=== PATIENT | male | born 1930 | race Caucasian/White ===

== ENCOUNTER 2017-08-19 18:46 | Observation (INO) | payer MEDICARE, BC ==
--- NOTE | 2017-08-19 19:04 | EDM.PDOC ---
ED HPI GENERAL MEDICAL PROBLEM - General Chief Complaint: General Stated Complaint: ILLNESS Time Seen by Provider: 08/19/17 19:04 Source of Information: Reports: Patient History Limitations: Reports: No Limitations - History of Present Illness INITIAL COMMENTS - FREE TEXT/NARRATIVE: pt arrived with a history of marked weakness. He started with a cough on wednesday and today he can not get out of bed. Onset: Other ( started wednesday. ) Duration: Day(s):, Getting Worse, Other (Pt is getting much weaker. ) Location: Reports: Chest, Generalized Associated Symptoms: Reports: Cough, Loss of Appetite, Weakness low back Pain Score (Numeric/FACES): 6 - Related Data Allergies Allergy/AdvReac Type Severity Reaction Status Date / Time No Known Allergies Allergy Verified 05/22/16 15:08 Home Meds: Home Meds Triamcinolone Acetonide [Triamcinolone Acetonide 0.1% Crm] 1 applic TOP BEDTIME 08/19/17 [History] Past Medical History HEENT History: Reports: Cataract, Hard of Hearing Genitourinary History: Reports: Prostate Disorder Musculoskeletal History: Reports: Back Pain, Chronic - Infectious Disease History Infectious Disease History: Reports: Measles, Mumps - Past Surgical History HEENT Surgical History: Reports: Cataract Surgery GI Surgical History: Reports: Hernia, Inguinal Social & Family History - Tobacco Use Smoking Status *Q: Never Smoker Second Hand Smoke Exposure: No - Caffeine Use Caffeine Use: Reports: Coffee - Alcohol Use Days Per Week of Alcohol Use: 7 Number of Drinks Per Day: 1 Total Drinks Per Week: 7 - Recreational Drug Use Recreational Drug Use: No ED ROS GENERAL - Review of Systems Review Of Systems: See Below Constitutional: Reports: Weakness, Fatigue HEENT: Reports: No Symptoms Respiratory: Reports: Shortness of Breath, Cough Cardiovascular: Reports: No Symptoms Endocrine: Reports: No Symptoms GI/Abdominal: Reports: No Symptoms : Reports: No Symptoms Musculoskeletal: Reports: Muscle Pain, Muscle Stiffness Skin: Reports: No Symptoms ED EXAM, GENERAL - Physical Exam Exam: See Below Free Text/Narrative:: pt arrived with a history of marked weakness and a cough. He has been ill since wednesday. He has a very loose cough. He is so weak he is not able to get out of bed. he did not have a flu shot. Exam Limited By: Other (pt has a cough and is very weak.) General Appearance: Alert, Mild Distress Ears: Normal TMs Nose: Normal Inspection Throat/Mouth: Normal Inspection Head: Atraumatic Neck: Normal Inspection Respiratory/Chest: Decreased Breath Sounds, Rales, Other (Pt has rales at the lung bases. ) Cardiovascular: Regular Rate, Rhythm GI/Abdominal: Soft, Non-Tender (Male) Exam: Deferred Back Exam: Other ( History of compression fractures and he fell twice in the last 2 days. ) Extremities: Normal Inspection Neurological: Alert, Oriented, Normal Cognition Psychiatric: Depressed Mood Course - Vital Signs Last Recorded V/S: Last Vital Signs Temp 37.2 C 08/20/17 01:11 Pulse 61 08/20/17 06:00 Resp 14 08/20/17 06:00 BP 112/55 L 08/20/17 06:00 Pulse Ox 95 08/20/17 06:00 - Orders/Labs/Meds Orders: Active Orders 24 hr Category Date Time Status Chest 1V Frontal [CR] Stat Exams 08/19/17 18:51 Taken Lumbar Spine Min 4V [CR] Stat Exams 08/19/17 19:42 Taken CULTURE URINE [RM] Stat Lab 08/19/17 20:20 Received Medication Orders Acetaminophen (Tylenol) 650 mg PO Q4H PRN PRN Reason: Pain (Mild 1-3)/fever Enoxaparin Sodium (Lovenox) 40 mg SUBCUT DAILY [facility] Sodium Chloride (Normal Saline) 1,000 mls @ 125 mls/hr IV ASDIRECTED [facility] Last Admin: 08/20/17 06:26 Dose: 125 mls/hr Infusion: 08/20/17 06:26 Dose: 125 mls/hr Admin: 08/19/17 22:32 Dose: 125 mls/hr Levofloxacin/Dextrose 500 mg/ (Premix) 100 mls @ 100 mls/hr IV Q24H [facility] Last Admin: 08/19/17 22:33 Dose: 100 mls/hr Ondansetron HCl (Zofran Odt) 4 mg PO Q6H PRN PRN Reason: Nausea able to take PO Oseltamivir Phosphate (Tamiflu) 30 mg PO BID [facility] Last Admin: 08/19/17 23:19 Dose: 30 mg Senna/Docusate Sodium (Senna Plus) 1 tab PO BID PRN PRN Reason: Constipation Labs: Laboratory Tests 08/19/17 08/19/17 08/19/17 Range/Units 18:51 18:51 19:06 WBC 6.4 (4.5-11.0) K/uL RBC 4.17 L (4.30-5.90) M/uL Hgb 13.7 (12.0-15.0) g/dL Hct 39.3 L (40.0-54.0) % MCV 94 (80-98) fL MCH 33 H (27-31) pg MCHC 35 (32-36) % Plt Count 150 (150-400) K/uL Neut % (Auto) 82 H (36-66) % Lymph % (Auto) 6 L (24-44) % [place] % (Auto) 12 H (2-6) % Eos % (Auto) 0 L (2-4) % Baso % (Auto) 0 (0-1) % Sodium 134 L (140-148) mmol/L Potassium 3.8 (3.6-5.2) mmol/L Chloride 100 (100-108) mmol/L Carbon Dioxide 22 (21-32) mmol/L Anion Gap 15.8 H (5.0-14.0) mmol/L BUN 22 H (7-18) mg/dL Creatinine 1.2 (0.8-1.3) mg/dL Est Cr Clr Drug Dosing 44.19 mL/min Estimated GFR (MDRD) 57 L (>60) Glucose 105 (74-106) mg/dL Calcium 7.9 L (8.5-10.1) mg/dL Total Bilirubin 0.7 (0.2-1.0) mg/dL AST 41 H (15-37) U/L ALT 26 (12-78) U/L Alkaline Phosphatase 65 (46-116) U/L C-Reactive Protein 3.05 H (0.0-0.3) mg/dL NT-Pro-B Natriuret Pep (5-450) pg/mL Total Protein 6.3 L (6.4-8.2) g/dL Albumin 3.1 L (3.4-5.0) g/dL Globulin 3.2 (2.3-3.5) g/dL Albumin/Globulin Ratio 1.0 L (1.2-2.2) Urine Color Yellow Urine Appearance Clear Urine pH 5.0 (4.5-8.0) Ur Specific [place] 1.020 (1.008-1.030) Urine Protein Trace (NEGATIVE) mg/dL Urine Glucose (UA) Normal (NEGATIVE) mg/dL Urine Ketones 15 H (NEGATIVE) mg/dL Urine Occult Blood Large (NEGATIVE) Urine Nitrite Negative (NEGAITVE) Urine Bilirubin Negative (NEGATIVE) Urine Urobilinogen Normal (NORMAL) mg/dL Ur Leukocyte Esterase Negative (NEGATIVE) Urine RBC 5-10 H (0-5) Urine WBC 0-5 (0-5) Ur Epithelial Cells Rare Amorphous Sediment Few Urine Bacteria Rare Urine Mucus Few 08/19/17 Range/Units 19:59 WBC (4.5-11.0) K/uL RBC (4.30-5.90) M/uL Hgb (12.0-15.0) g/dL Hct (40.0-54.0) % MCV (80-98) fL MCH (27-31) pg MCHC (32-36) % Plt Count (150-400) K/uL Neut % (Auto) (36-66) % Lymph % (Auto) (24-44) % [place] % (Auto) (2-6) % Eos % (Auto) (2-4) % Baso % (Auto) (0-1) % Sodium (140-148) mmol/L Potassium (3.6-5.2) mmol/L Chloride (100-108) mmol/L Carbon Dioxide (21-32) mmol/L Anion Gap (5.0-14.0) mmol/L BUN (7-18) mg/dL Creatinine (0.8-1.3) mg/dL Est Cr Clr Drug Dosing mL/min Estimated GFR (MDRD) (>60) Glucose (74-106) mg/dL Calcium (8.5-10.1) mg/dL Total Bilirubin (0.2-1.0) mg/dL AST (15-37) U/L ALT (12-78) U/L Alkaline Phosphatase (46-116) U/L C-Reactive Protein (0.0-0.3) mg/dL NT-Pro-B Natriuret Pep 328 (5-450) pg/mL Total Protein (6.4-8.2) g/dL Albumin (3.4-5.0) g/dL Globulin (2.3-3.5) g/dL Albumin/Globulin Ratio (1.2-2.2) Urine Color Urine Appearance Urine pH (4.5-8.0) Ur Specific [place] (1.008-1.030) Urine Protein (NEGATIVE) mg/dL Urine Glucose (UA) (NEGATIVE) mg/dL Urine Ketones (NEGATIVE) mg/dL Urine Occult Blood (NEGATIVE) Urine Nitrite (NEGAITVE) Urine Bilirubin (NEGATIVE) Urine Urobilinogen (NORMAL) mg/dL Ur Leukocyte Esterase (NEGATIVE) Urine RBC (0-5) Urine WBC (0-5) Ur Epithelial Cells Amorphous Sediment Urine Bacteria Urine Mucus Meds: Medications Generic Name Dose Route Start Last Admin Trade Name Freq PRN Reason Stop Dose Admin Acetaminophen 650 mg 08/19/17 21:24 Tylenol PO Q4H PRN Pain (Mild 1-3)/fever Enoxaparin Sodium 40 mg 08/20/17 09:00 Lovenox SUBCUT DAILY [facility] Sodium Chloride 1,000 mls @ 125 mls/hr 08/19/17 21:30 08/20/17 06:26 Normal Saline IV 125 mls/hr ASDIRECTED [facility] Administration Levofloxacin/Dextrose 500 mg/ 100 mls @ 100 mls/hr 08/19/17 22:00 08/19/17 22 :33 Premix IV 100 mls/hr Q24H [facility] Administration Ondansetron HCl 4 mg 08/19/17 21:24 Zofran Odt PO Q6H PRN Nausea able to take PO Oseltamivir Phosphate 30 mg 08/19/17 22:00 08/19/17 23:19 Tamiflu PO 30 mg BID [facility] Administration Senna/Docusate Sodium 1 tab 08/19/17 21:24 Senna Plus PO BID PRN Constipation Discontinued Medications Generic Name Dose Route Start Last Admin Trade Name Freq PRN Reason Stop Dose Admin Sodium Chloride 1,000 mls @ 500 mls/hr 08/19/17 19:15 08/19/17 19:28 Normal Saline IV 500 mls/hr ASDIRECTED [facility] Administration Levofloxacin/Dextrose 750 mg/ 150 mls @ 100 mls/hr 08/19/17 22:00 Premix IV Q48H [facility] Oseltamivir Phosphate 75 mg 08/19/17 21:30 Tamiflu PO BID [facility] - Re-Assessments/Exams Free Text/Narrative Re-Assessment/Exam: 08/19/17 20:02 influ a was positive. Pt has a low wbc. He is on the dehydrated side. Free Text/Narrative Re-Assessment/Exam: 08/19/17 20:21 Pt arrived with some low back discomfort. He has fallen twice in the last 3 days. Lumbar spine seris showed 2 compression fractures L1 Nd L2. These I believe are old. Departure - Departure Time of Disposition: 20:02 Disposition: Admitted As Inpatient 67 Condition: Fair Clinical Impression: Influenza A, Pneumonia, Dehydration - Discharge Information - My Orders Last 24 Hours: My Active Orders 08/19/17 18:51 Chest 1V Frontal [CR] Stat 08/19/17 19:42 Lumbar Spine Min 4V [CR] Stat 08/19/17 20:20 CULTURE URINE [RM] Stat - Assessment/Plan Last 24 Hours: My Active Orders 08/19/17 18:51 Chest 1V Frontal [CR] Stat 08/19/17 19:42 Lumbar Spine Min 4V [CR] Stat 08/19/17 20:20 CULTURE URINE [RM] Stat
[2017-08-19] MEDS ORDERED: Sodium Chloride 0.9% 1,000 ML IV SCH (19:15)
[2017-08-19] MEDS ORDERED: Acetaminophen 325 MG Tab PO PRN (21:24)
[2017-08-19] MEDS ORDERED: Ondansetron 4 MG Tab.DIS PO PRN (21:24)
[2017-08-19] MEDS ORDERED: Oseltamivir 75 MG Cap PO SCH (21:30)
[2017-08-19] MEDS ORDERED: Levofloxacin/Dextrose 5%-Water 750 MG in Premix Bag 1 BAG IV SCH (22:00)
[2017-08-19] MEDS ORDERED: Levofloxacin/Dextrose 5%-Water 500 MG in Premix Bag 1 BAG IV SCH (22:00)
[2017-08-19] MEDS: Sodium Chloride 0.9% 1,000 ML IV SCH (22:32)
[2017-08-19] MEDS: Oseltamivir 30 MG Cap PO SCH (23:19)
[2017-08-20] MEDS: Sodium Chloride 0.9% 1,000 ML IV SCH (06:26)
--- NOTE | 2017-08-20 08:54 | CR ---
L-spine Correlation is made to L-spine MRI from October 2016. There are chronic compression deformities of L1-L3. There is no evidence for progression. No acute co mpressions are seen. There are chronic degenerative findings a lumbar spine. Impression: 1. Multiple lumbar compression fractures which appear chronic. If there are significant persistent sy mptoms MRI could be performed to assess for an acute injury.
[2017-08-20] MEDS: Oseltamivir 30 MG Cap PO SCH ×2 (09:23→21:18)
[2017-08-20] MEDS: Enoxaparin 40 MG/0.4 ML Syringe SUBCUT SCH (09:23)
--- NOTE | 2017-08-20 10:22 | PCM.PN ---
- General Info Date of Service: 08/20/17 Subjective Update: Mr. Norman is an 87-year-old gentleman who was admitted through the emergency department last night with shortness of breath and weakness secondary to influenza A. He has received IV fluids for hydration and started on Tamiflu. Functional Status: Reports: Tolerating Diet, Urinating - Review of Systems General: Reports: Weakness. Denies: Fever, Chills Pulmonary: Reports: Shortness of Breath, Cough. Denies: Sputum, Hemoptysis Cardiovascular: Reports: Dyspnea on Exertion. Denies: Chest Pain, Palpitations , Orthopnea, PND Gastrointestinal: Reports: No Symptoms - Patient Data Vitals - Most Recent: Last Vital Signs Temp 98.1 F 08/20/17 09:18 Pulse 50 L 08/20/17 09:18 Resp 10 L 08/20/17 09:18 BP 139/55 L 08/20/17 09:18 Pulse Ox 92 L 08/20/17 09:18 Weight - Most Recent: 163 lb 1.6 oz I&O - Last 24 Hours: Intake & Output 08/19/17 08/20/17 08/20/17 22:59 06:59 14:59 Intake Total 2371 Output Total 700 200 Balance 1671 -200 Lab Results Last 24 Hours: Laboratory Results - last 24 hr 08/20/17 08/20/17 Range/Units 05:45 05:45 WBC 5.4 (4.5-11.0) K/uL RBC 4.00 L (4.30-5.90) M/uL Hgb 13.2 (12.0-15.0) g/dL Hct 38.0 L (40.0-54.0) % MCV 95 (80-98) fL MCH 33 H (27-31) pg MCHC 35 (32-36) % Plt Count 136 L (150-400) K/uL Neut % (Auto) 66 (36-66) % Lymph % (Auto) 20 L (24-44) % [place] % (Auto) 14 H (2-6) % Eos % (Auto) 0 L (2-4) % Baso % (Auto) 0 (0-1) % Sodium 136 L (140-148) mmol/L Potassium 4.1 (3.6-5.2) mmol/L Chloride 104 (100-108) mmol/L Carbon Dioxide 23 (21-32) mmol/L Anion Gap 13.1 (5.0-14.0) mmol/L BUN 20 H (7-18) mg/dL Creatinine 1.1 (0.8-1.3) mg/dL Est Cr Clr Drug Dosing 48.20 mL/min Estimated GFR (MDRD) > 60 (>60) Glucose 92 (74-106) mg/dL Calcium 7.7 L (8.5-10.1) mg/dL Total Bilirubin 0.6 (0.2-1.0) mg/dL AST 43 H (15-37) U/L ALT 26 (12-78) U/L Alkaline Phosphatase 56 (46-116) U/L Total Protein 5.6 L (6.4-8.2) g/dL Albumin 2.6 L (3.4-5.0) g/dL Globulin 3.0 (2.3-3.5) g/dL Albumin/Globulin Ratio 0.9 L (1.2-2.2) Med Orders - Current: Current Medications Acetaminophen (Tylenol) 650 mg PO Q4H PRN PRN Reason: Pain (Mild 1-3)/fever Enoxaparin Sodium (Lovenox) 40 mg SUBCUT DAILY [facility] Last Admin: 08/20/17 09:23 Dose: 40 mg Levofloxacin/Dextrose 750 mg/ (Premix) 150 mls @ 100 mls/hr IV Q24H [facility] Sodium Chloride (Normal Saline) 1,000 mls @ 50 mls/hr IV ASDIRECTED [facility] Ondansetron HCl (Zofran Odt) 4 mg PO Q6H PRN PRN Reason: Nausea able to take PO Oseltamivir Phosphate (Tamiflu) 30 mg PO BID [facility] Last Admin: 08/20/17 09:23 Dose: 30 mg Senna/Docusate Sodium (Senna Plus) 1 tab PO BID PRN PRN Reason: Constipation Discontinued Medications Sodium Chloride (Normal Saline) 1,000 mls @ 500 mls/hr IV ASDIRECTED [facility] Last Admin: 08/19/17 19:28 Dose: 500 mls/hr Sodium Chloride (Normal Saline) 1,000 mls @ 125 mls/hr IV ASDIRECTED [facility] Last Admin: 08/20/17 06:26 Dose: 125 mls/hr Levofloxacin/Dextrose 750 mg/ (Premix) 150 mls @ 100 mls/hr IV Q48H [facility] Levofloxacin/Dextrose 500 mg/ (Premix) 100 mls @ 100 mls/hr IV Q24H [facility] Last Admin: 08/19/17 22:33 Dose: 100 mls/hr Oseltamivir Phosphate (Tamiflu) 75 mg PO BID [facility] - Exam Quality Assessment: Supplemental Oxygen, DVT Prophylaxis General: Alert, Oriented, Cooperative Lungs: Clear to Auscultation, Normal Respiratory Effort Cardiovascular: Regular Rhythm, No Murmurs, Bradycardia GI/Abdominal Exam: Soft, Non-Tender, No Organomegaly, No Distention Extremities: Non-Tender, No Pedal Edema Skin: Warm, Dry, Intact - Problem List Review Problem List Initiated/Reviewed/Updated: Yes - My Orders Last 24 Hours: My Active Orders 08/20/17 10:14 Ambulate [RC] QID Discontinue Telemetry Monitoring [Cardiac Monitoring Discontinue] [RC] Click to Edit Up With Assistance [RC] ASDIRECTED Up to Chair [RC] QID 08/20/17 10:30 Sodium Chloride 0.9% [Normal Saline] 1,000 ml IV ASDIRECTED - Plan Plan:: ASSESSMENT AND PLAN INFLUENZA A-likely cause of symptoms with shortness of breath and weakness -Decrease IV fluids to 50 mL/h -Continue Tamiflu CHRONIC LOW BACK PAIN-evidence of spinal compression fractures on x-ray -Pain medication as needed -Physical therapy consult MAINTENANCE ISSUES -DVT prophylaxis; Lovenox 40 mg subcutaneous daily -GI prophylaxis; not indicated -Lora catheter; not indicated -Nutrition; regular diet -Nicotine dependence; not required CODE STATUS-full code ADMISSION STATUS-this patient will be admitted to observation status, expect no more than a one night hospital stay for evaluation and management of problems as outlined above. DISPOSITION-anticipate discharge to home after the hospital stay. PRIMARY CARE PROVIDER-Dr. Villarreal
[2017-08-20] MEDS ORDERED: Sodium Chloride 0.9% 1,000 ML IV SCH (10:30)
[2017-08-20] MEDS ORDERED: Levofloxacin/Dextrose 5%-Water 750 MG in Premix Bag 1 BAG IV SCH (22:00)
[2017-08-21] MEDS: Enoxaparin 40 MG/0.4 ML Syringe SUBCUT SCH (08:35)
[2017-08-21] MEDS: Oseltamivir 30 MG Cap PO SCH (08:35)
[2017-08-21 11:59] VITALS: BP 187/60
--- NOTE | 2017-08-21 13:23 | PCM.DCSUM1 ---
Discharge Summary - Hospital Course Brief History: This patient is an 87-year-old gentleman who was admitted through the emergency department with weakness, dehydration, and shortness of breath secondary to influenza A. - Discharge Data Discharge Date: 08/21/17 Discharge Disposition: Home, Self-Care 01 Condition: Fair - Discharge Diagnosis/Problem(s) (1) Influenza A SNOMED Code(s): 991815727 ICD Code: J10.1 - FLU DUE TO OTH IDENT INFLUENZA VIRUS W OTH RESP MANIFEST Status: Acute Current Visit: Yes (2) Dehydration SNOMED Code(s): 79364614 ICD Code: E86.0 - DEHYDRATION Status: Acute Current Visit: Yes - Patient Summary/Data Hospital Course: This patient had developed symptoms of respiratory tract infection with fever, weakness, and cough. On evaluation in emergency department chest x-ray showed no obvious infiltrates, white blood cell count was normal, influenza A antigen was found to be positive. On admission he he was started on Tamiflu as well as IV antibiotic therapy with levofloxacin. IV fluids were administered for management of dehydration. He was feeling somewhat better the following morning but not yet close to baseline. After additional 24 hours of hospitalization he had significantly improved and family felt that he was fairly close to baseline as far as his breathing and functional status. Antibiotic therapy will be discontinued at the time of discharge. He will receive 3 additional days of oral Tamiflu. Activity will be as tolerated and he will resume his usual diet. Follow-up appointment will be scheduled with his primary care provider within one week. - Patient Instructions Diet: Usual Diet as Tolerated Activity: As Tolerated Other/Special Instructions: Please schedule follow-up appointment with primary care provider within one week. - Discharge Plan Prescriptions/Med Rec: Oseltamivir [Tamiflu] 30 mg PO BID #6 cap Home Medications: Home Meds Triamcinolone Acetonide [Triamcinolone Acetonide 0.1% Crm] 1 applic TOP BEDTIME 08/19/17 [History] Oseltamivir [Tamiflu] 30 mg PO BID #6 cap 08/21/17 [Rx] Forms: ED Department Discharge Referrals: Dexter Villarreal MD [Primary Care Provider] - - Patient Data Vitals - Most Recent: Last Vital Signs Temp 96 F 08/21/17 11:56 Pulse 50 L 08/21/17 11:56 Resp 14 08/21/17 11:56 BP 187/60 H 08/21/17 11:56 Pulse Ox 98 08/21/17 11:56 Weight - Most Recent: 163 lb 2.273 oz I&O - Last 24 hours: Intake & Output 08/20/17 08/21/17 08/21/17 22:59 06:59 14:59 Intake Total 1129 634 Output Total 240 625 300 Balance 889 9 -300 BILL Results - Last 24 hrs: Microbiology 08/19/17 22:20 Aerobic Blood Culture - Preliminary Blood - Venous NO GROWTH AFTER 1 DAY Anaerobic Blood Culture - Preliminary NO GROWTH AFTER 1 DAY 08/19/17 22:20 Aerobic Blood Culture - Preliminary Blood - Venous - Lab Draw NO GROWTH AFTER 1 DAY Anaerobic Blood Culture - Preliminary NO GROWTH AFTER 1 DAY Med Orders - Current: Current Medications Acetaminophen (Tylenol) 650 mg PO Q4H PRN PRN Reason: Pain (Mild 1-3)/fever Last Admin: 08/20/17 11:47 Dose: 650 mg Enoxaparin Sodium (Lovenox) 40 mg SUBCUT DAILY [facility] Last Admin: 08/21/17 08:35 Dose: 40 mg Levofloxacin/Dextrose 750 mg/ (Premix) 150 mls @ 100 mls/hr IV Q24H [facility] Last Admin: 08/20/17 21:18 Dose: 100 mls/hr Sodium Chloride (Normal Saline) 1,000 mls @ 50 mls/hr IV ASDIRECTED [facility] Last Admin: 08/20/17 18:23 Dose: 50 mls/hr Ondansetron HCl (Zofran Odt) 4 mg PO Q6H PRN PRN Reason: Nausea able to take PO Oseltamivir Phosphate (Tamiflu) 30 mg PO BID [facility] Last Admin: 08/21/17 08:35 Dose: 30 mg Senna/Docusate Sodium (Senna Plus) 1 tab PO BID PRN PRN Reason: Constipation Discontinued Medications Sodium Chloride (Normal Saline) 1,000 mls @ 500 mls/hr IV ASDIRECTED [facility] Last Admin: 08/19/17 19:28 Dose: 500 mls/hr Sodium Chloride (Normal Saline) 1,000 mls @ 125 mls/hr IV ASDIRECTED [facility] Last Admin: 08/20/17 06:26 Dose: 125 mls/hr Levofloxacin/Dextrose 750 mg/ (Premix) 150 mls @ 100 mls/hr IV Q48H [facility] Levofloxacin/Dextrose 500 mg/ (Premix) 100 mls @ 100 mls/hr IV Q24H [facility] Last Admin: 08/19/17 22:33 Dose: 100 mls/hr Oseltamivir Phosphate (Tamiflu) 75 mg PO BID [facility] *Q Meaningful Use (DIS) - VTE *Q VTE Criteria *Q: - Stroke *Q Stroke Criteria *Q: - AMI *Q AMI Criteria *Q:
--- NOTE | 2017-08-21 13:39 | PCM.HP ---
H&P History of Present Illness - General Date of Service: 08/19/17 Admit Problem/Dx: Admission Diagnosis/Problem Admission Diagnosis/Problem Influenza Source of Information: Patient History Limitations: Reports: No Limitations - History of Present Illness Initial Comments - Free Text/Narative: 87-year-old male with no past medical history came to the ED with the complaining of weakness andfatigue. Patient accompanied with daughters reports that patient has been sick since last 1 week with cough and intermittent fevers. Patient is not on any prescription medication. Patient denies any previous significant past medical history. Patient denies any chest pain, exertional chest pain, breathing difficulty, headaches, dizziness, lightheadedness, disturbance in bowel or bladder habits. During the ED workup patient influenza is positive. Patient reports that he has intermittent cough without any sputum production. Patient is a full code. Other review of systems are not significant. low back Pain Score (Numeric/FACES): 6 - Related Data Allergies/Adverse Reactions: Allergies Allergy/AdvReac Type Severity Reaction Status Date / Time No Known Allergies Allergy Verified 05/22/16 15:08 Home Medications: Home Meds Triamcinolone Acetonide [Triamcinolone Acetonide 0.1% Crm] 1 applic TOP BEDTIME 08/19/17 [History] Oseltamivir [Tamiflu] 30 mg PO BID #6 cap 08/21/17 [Rx] Past Medical History HEENT History: Reports: Cataract, Hard of Hearing Genitourinary History: Reports: Prostate Disorder Musculoskeletal History: Reports: Back Pain, Chronic - Infectious Disease History Infectious Disease History: Reports: Measles, Mumps - Past Surgical History HEENT Surgical History: Reports: Cataract Surgery GI Surgical History: Reports: Hernia, Inguinal Social & Family History - Tobacco Use Smoking Status *Q: Never Smoker Second Hand Smoke Exposure: No - Caffeine Use Caffeine Use: Reports: Coffee - Alcohol Use Days Per Week of Alcohol Use: 7 Number of Drinks Per Day: 1 Total Drinks Per Week: 7 - Recreational Drug Use Recreational Drug Use: No H&P Review of Systems - Review of Systems: Review Of Systems: See Below General: Reports: Fever, Chills, Malaise, Weakness, Fatigue Pulmonary: Reports: Shortness of Breath, Cough. Denies: Wheezing, Pleuritic Chest Pain, Sputum Cardiovascular: Reports: Dyspnea on Exertion, Lightheadedness. Denies: Chest Pain, Palpitations, Orthopnea, PND, Edema, Syncope, Claudication Gastrointestinal: Denies: Abdominal Pain, Anorexia, Black Stool, Bloody Stool, Constipation, Diarrhea Genitourinary: Denies: Dysuria, Frequency, Burning Musculoskeletal: Reports: Back Pain. Denies: Neck Pain, Shoulder Pain, Arm Pain Skin: Denies: Cyanosis, Jaundice, Mottled Psychiatric: Denies: Confusion, Depression Neurological: Denies: Confusion, Dizziness Hematologic/Lymphatic: Denies: Anemia, Easy Bleeding Immunologic: Denies: Anaphylaxis Exam - Exam Exam: See Below - Vital Signs Vital Signs: Last Vital Signs Temp 35.5 C 08/21/17 11:56 Pulse 50 L 08/21/17 11:56 Resp 14 08/21/17 11:56 BP 187/60 H 08/21/17 11:56 Pulse Ox 98 08/21/17 11:56 Weight: 74 kg - Exam Quality Assessment: No: Supplemental Oxygen General: Alert, Oriented Neck: Supple, Trachea Midline Lungs: Crackles Cardiovascular: Regular Rate, Regular Rhythm GI/Abdominal Exam: Normal Bowel Sounds, Soft, Non-Tender, No Organomegaly Back Exam: Normal Inspection, Full Range of Motion Extremities: Normal Inspection, Normal Range of Motion, Non-Tender, No Pedal Edema - Patient Data Result Diagrams: 08/20/17 05:45 08/20/17 05:45 Juan Alberto Results Last 24 hrs: Microbiology 08/19/17 22:20 Aerobic Blood Culture - Preliminary Blood - Venous NO GROWTH AFTER 1 DAY Anaerobic Blood Culture - Preliminary NO GROWTH AFTER 1 DAY 08/19/17 22:20 Aerobic Blood Culture - Preliminary Blood - Venous - Lab Draw NO GROWTH AFTER 1 DAY Anaerobic Blood Culture - Preliminary NO GROWTH AFTER 1 DAY *Q Meaningful Use (ADM) - VTE *Q VTE Criteria *Q: - Stroke *Q Stroke Criteria *Q: - AMI *Q AMI Criteria *Q: - Problem List (1) Dehydration SNOMED Code(s): 57356433 ICD Code: E86.0 - DEHYDRATION Status: Acute Current Visit: Yes (2) Influenza A SNOMED Code(s): 267142932 ICD Code: J10.1 - FLU DUE TO OTH IDENT INFLUENZA VIRUS W OTH RESP MANIFEST Status: Acute Current Visit: Yes (3) Pneumonia SNOMED Code(s): 379163965 ICD Code: J18.9 - PNEUMONIA, UNSPECIFIED ORGANISM Status: Acute Current Visit: Yes (4) Lumbar disc disease SNOMED Code(s): 699607529 ICD Code: M51.9 - UNSP THORACIC, THORACOLUM AND LUMBOSACR INTVRT DISC DISORDER Status: Acute Current Visit: No Problem List Initiated/Reviewed/Updated: Yes Orders Last 24hrs: Active Orders 24 hr Category Date Time Status Ready for Discharge [RC] PER UNIT ROUTINE Care 08/21/17 13:17 Active Levofloxacin/Dextrose 5%-Water [Levaquin in D5W 750 MG/ Med 08/20/17 22:00 Active 150 ML] 750 mg Premix Bag 1 bag IV Q24H Medication Orders Acetaminophen (Tylenol) 650 mg PO Q4H PRN PRN Reason: Pain (Mild 1-3)/fever Last Admin: 08/20/17 11:47 Dose: 650 mg Enoxaparin Sodium (Lovenox) 40 mg SUBCUT DAILY [facility] Last Admin: 08/21/17 08:35 Dose: 40 mg Admin: 08/20/17 09:23 Dose: 40 mg Levofloxacin/Dextrose 750 mg/ (Premix) 150 mls @ 100 mls/hr IV Q24H [facility] Last Admin: 08/20/17 21:18 Dose: 100 mls/hr Sodium Chloride (Normal Saline) 1,000 mls @ 50 mls/hr IV ASDIRECTED [facility] Last Admin: 08/20/17 18:23 Dose: 50 mls/hr Ondansetron HCl (Zofran Odt) 4 mg PO Q6H PRN PRN Reason: Nausea able to take PO Oseltamivir Phosphate (Tamiflu) 30 mg PO BID [facility] Last Admin: 08/21/17 08:35 Dose: 30 mg Admin: 08/20/17 21:18 Dose: 30 mg Admin: 08/20/17 09:23 Dose: 30 mg Admin: 08/19/17 23:19 Dose: 30 mg Senna/Docusate Sodium (Senna Plus) 1 tab PO BID PRN PRN Reason: Constipation Assessment/Plan Comment:: A 7-year-old male with no significant past medical history came to the clinic with a complaining of cough and weakness and diagnosed with influenza with questionable pneumonia admitted into observation status. (1) Dehydration (2) Influenza A (3) Pneumonia (4) Lumbar disc disease Patient influenza test is positive Will treat with Tamiflu Patient has dehydration signs and symptoms during history and physical examination We'll treat with IV fluids with maintenance dose X-ray showed questionable pneumonia Will treat with levofloxacin Will follow blood cultures and urine culture report and change the management accordingly CBC CMP tomorrow pain management for chronic back pain X-rays are at baseline DVT prophylaxis Lovenox 40 mg subcutaneous daily GI prophylaxis not indicated Nutrition regular diet CODE STATUS full code
== END 2017-08-21 14:10 | disposition home or self-care (01) ==
LOC: JP.ED 18:46 → JP.ICU 21:24
PROVIDERS: ADMIT Family Medicine; ATTEND Family Medicine
DX: J10.00 Influenza due to other identified influenza virus with unspecified type of pneumonia (principal); E86.0 Dehydration; M51.9 Unspecified thoracic, thoracolumbar and lumbosacral intervertebral disc disorder
CPT/HCPCS: 36415; 71010; 72110; 80053; 81001; 83880; 85025; 86140; 87040; 87086; 87804; 96360; 96361; 97110; 97162; 97530; 99285; A9270; J1650; J1956; J7040; 96365; 96366; 96372; 99224; G0378

== ENCOUNTER 2020-08-11 11:45 | Observation (INO) | payer MEDICARE, BC ==
--- NOTE | 2020-08-11 13:53 | PCM.HP.2 ---
H&P History of Present Illness - General Date of Service: 08/11/20 Admit Problem/Dx: Admission Diagnosis/Problem Admission Diagnosis/Problem Weakness Source of Information: Family, Provider. No: Patient History Limitations: Reports: Altered Mental Status (dementia and hard of hearing ) - History of Present Illness Initial Comments - Free Text/Narative: CC: weakness HPI: Eliceo presents to the emergency room today with weakness. He has some dementia and is very hard of hearing so history was extremely difficult to gather. History is gathered from his daughter and emergency room personnel. His daughter reports that over the last week he has had a slow decline with i ncreasing weakness and a mild increase in his confusion from baseline. He has been having more and more difficulty getting around the house where he usually is at least somewhat ambulatory. He has not had any fevers. He has been eating and drinking normally. No change in bowel or bladder habits. He did have a fall a couple of days ago landing on his left side. He does appear to have some left hip pain but he is not able to tell me what this feels like. He was so weak today that he could not get up out of the chair. Once his family helped him up he was able to walk to the car but then could not get out of the car. Work-up in the emergency room has been fairly unremarkable. Urine sample is still pending looking for infection. He will be admitted for observation and physical therapy. - Related Data Allergies/Adverse Reactions: Allergies Allergy/AdvReac Type Severity Reaction Status Date / Time No Known Allergies Allergy Verified 08/11/20 11:50 Home Medications: Home Meds Tamsulosin [Flomax] 1 tab PO BID 08/11/20 [History] Past Medical History HEENT History: Reports: Cataract, Hard of Hearing Genitourinary History: Reports: Prostate Disorder, Other (See Below) Other Genitourinary History: incontinent of urine and sometimes bowel Musculoskeletal History: Reports: Back Pain, Chronic Neurological History: Reports: None - Infectious Disease History Infectious Disease History: Reports: Measles, Mumps - Past Surgical History HEENT Surgical History: Reports: Cataract Surgery GI Surgical History: Reports: Hernia, Inguinal Male Surgical History: Reports: None Neurological Surgical History: Reports: None Social & Family History - Family History Family Medical History: Unobtainable (dementia) - Tobacco Use Tobacco Use Status *Q: Never Tobacco User Second Hand Smoke Exposure: No - Caffeine Use Caffeine Use: Reports: Coffee - Alcohol Use Alcohol Use History: No - Recreational Drug Use Recreational Drug Use: No H&P Review of Systems - Review of Systems: Review Of Systems: Unable To Obtain Reason Not Obtained: dementia Exam - Exam Exam: See Below - Vital Signs Vital Signs: Last Vital Signs Temp 36.1 C 08/11/20 11:59 Pulse 60 08/11/20 11:59 Resp 14 08/11/20 11:59 BP 123/58 L 08/11/20 11:59 Pulse Ox 97 08/11/20 11:59 Weight: 74.843 kg - Exam Quality Assessment: No: Supplemental Oxygen General: Alert, Cooperative. No: Oriented, Mild Distress HEENT: Conjunctiva Clear. No: Mucosa Moist & [place] (dry), Scleral Icterus Neck: Supple, Trachea Midline Lungs: Clear to Auscultation, Normal Respiratory Effort Cardiovascular: Regular Rate, Regular Rhythm. No: Systolic Murmur GI/Abdominal Exam: Normal Bowel Sounds, Soft, Non-Tender, No Distention Extremities: No Pedal Edema, Other (left hip mildly ttp over greater trochanter). No: Increased Warmth Peripheral Pulses: 1+: Dorsalis Pedis (L), Dorsalis Pedis (R) Skin: Warm, Dry Neuro Extensive - Mental Status: Alert, Slow Response to Commands. No: Oriented x3 Neuro Extensive - Motor, Sensory, Reflexes: No: Abnormal Reflexes, Abnormal Motor, Tremor Psychiatric: Alert. No: Agitated - Patient Data Lab Results Last 24 hrs: Laboratory Results - last 24 hr 08/11/20 08/11/20 Range/Units 12:39 12:39 WBC 4.6 (4.5-11.0) K/uL RBC 4.40 (4.30-5.90) M/uL Hgb 13.9 (12.0-15.0) g/dL Hct 41.1 (40.0-54.0) % MCV 93 (80-98) fL MCH 32 H (27-31) pg MCHC 34 (32-36) % Plt Count 232 (150-400) K/uL Neut % (Auto) 51 (36-66) % Lymph % (Auto) 30 (24-44) % [place] % (Auto) 17 H (2-6) % Eos % (Auto) 2 (2-4) % Baso % (Auto) 1 (0-1) % Sodium 136 L (140-148) mmol/L Potassium 4.1 (3.6-5.2) mmol/L Chloride 102 (100-108) mmol/L Carbon Dioxide 23 (21-32) mmol/L Anion Gap 15.1 H (5.0-14.0) mmol/L BUN 26 H (7-18) mg/dL Creatinine 1.4 H (0.8-1.3) mg/dL Est Cr Clr Drug Dosing 37.87 mL/min Estimated GFR (MDRD) 48 L (>60) Glucose 109 H (74-106) mg/dL Calcium 8.3 L (8.5-10.1) mg/dL Total Bilirubin 0.5 (0.2-1.0) mg/dL AST 23 (15-37) U/L ALT 25 (12-78) U/L Alkaline Phosphatase 91 (46-116) U/L Total Protein 6.6 (6.4-8.2) g/dL Albumin 3.1 L (3.4-5.0) g/dL Globulin 3.5 (2.3-3.5) g/dL Albumin/Globulin Ratio 0.9 L (1.2-2.2) Result Diagrams: 08/11/20 12:39 08/11/20 12:39 Imaging Impressions Last 24 hrs: Left hip XR-images personally reviewed-no evidence for fracture or dislocation. Arthritis present. Sepsis Event Note - Evaluation Sepsis Screening Result: No Definite Risk - Focused Exam Vital Signs: Vital Signs Temp Pulse Resp BP Pulse Ox 08/11/20 11:59 36.1 C 60 14 123/58 L 97 *Q Meaningful Use (ADM) - VTE Risk Assess *Q Each Risk Factor Represents 1 Point: None Total Score 1 Point Risk Factors: 0 Each Risk Factor Represents 2 Points: None Total Score 2 Point Risk Factors: 0 Each Risk Factor Represents 3 Points: Age 75 Years or Greater Total Score 3 Point Risk Factors: 3 Each Risk Factor Represents 5 Points: None Total Score 5 Point Risk Factors: 0 Venous Thromboembolism Risk Factor Score *Q: 3 - Problem List (1) Weakness SNOMED Code(s): 94502604 ICD Code: R53.1 - WEAKNESS Status: Acute Current Visit: Yes (2) Fall in elderly patient SNOMED Code(s): 569175813 ICD Code: R29.6 - REPEATED FALLS Status: Acute Current Visit: Yes (3) BPH loc w urin obs/LUTS SNOMED Code(s): 092858004 ICD Code: N40.1 - BENIGN PROSTATIC HYPERPLASIA WITH LOWER URINARY TRACT SYMP Status: Chronic Current Visit: Yes (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 SNOMED Code(s): 89799309 ICD Code: G30.9 - ALZHEIMER'S DISEASE, UNSPECIFIED; F02.80 - DEMENTIA IN OTH DISEASES CLASSD ELSWHR W/O BEHAVRL DISTURB Status: Suspected Current Visit: Yes Qualifiers: Alzheimer's disease onset: late-onset Qualified Code(s): G30.1 - Alzheimer's disease with late onset; F02.80 - Dementia in other diseases classified elsewhere without behavioral disturbance Problem List Initiated/Reviewed/Updated: Yes Orders Last 24hrs: Active Orders 24 hr Category Date Time Status Patient Status Manage Transfer [TRANSFER] Routine ADT 08/11/20 13:46 Ordered Hip Min 2V or 3V w Pelvis Lt [CR] Stat Exams 08/11/20 12:29 Taken CORONAVIRUS COVID-19, RUSS Routine Lab 08/11/20 13:27 Ordered CRP [C-REACTIVE PROTEIN] [CHEM] Stat Lab 08/11/20 13:25 Ordered UA W/MICROSCOPIC [URIN] Stat Lab 08/11/20 13:23 Ordered Resuscitation Status Routine Resus Stat 08/11/20 13:46 Ordered Assessment/Plan Comment:: ASSESSMENT AND PLAN - Generalized weakness-no obvious source of infection yet. Covid is negative. Urine is still pending. No focal deficit to suggest stroke. Examination is benign. -Follow-up urinalysis -Physical therapy in the morning Probable Alzheimer's disease-no formal diagnosis but he has chronic memory problems. No behavior issues at this time. 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 Possible decubitus ulcer-family reports an area of redness on his sacral area. He is in a wheelchair at this time in 2-week to get a good look at this area. He will be examined once he is in bed. Maintenance issues - - DVT prophylaxis -mechanical - GI prophylaxis -not indicated - Nutrition -regular - Lora catheter -not indicated CODE STATUS -DNR/DNI Admission justification -patient will be referred to observation status for strengthening and additional work-up Disposition -I would anticipate discharge home with home care versus possibly a subacute rehab Primary care physician -Dr Micheal Benitez M.D. - Mortality Measure Prognosis:: Poor
[2020-08-11] MEDS ORDERED: Sodium Chloride 0.9% 10 ML Syringe FLUSH PRN (15:00)
[2020-08-11] MEDS ORDERED: Ondansetron 4 MG Tab.DIS PO PRN (15:00)
[2020-08-11] MEDS ORDERED: LORazepam 2 MG/ML SDV IVPUSH PRN (15:00)
[2020-08-11] MEDS ORDERED: Ondansetron 4 MG/2 ML SDV IV PRN (15:00)
[2020-08-11] MEDS ORDERED: Magnesium Hydroxide 400 MG/5 ML Susp 30 ML Cup PO PRN (15:00)
[2020-08-11] MEDS ORDERED: Sodium Chloride 0.9% 1,000 ML IV SCH (15:00)
[2020-08-11] MEDS: Acetaminophen 500 MG Tab PO SCH ×2 (16:44→20:10)
[2020-08-11] MEDS: Melatonin 3 MG Tab PO SCH (20:10)
[2020-08-11] MEDS ORDERED: Tamsulosin 0.4 MG Cap.ER PO SCH (21:00)
[2020-08-12] MEDS: Ibuprofen 600 MG Tab PO PRN ×2 (00:01→06:04)
[2020-08-12] MEDS: Acetaminophen 500 MG Tab PO SCH ×3 (10:13→20:55)
--- NOTE | 2020-08-12 10:19 | CR ---
Hip Min 2V or 3V w Pelvis Lt CLINICAL HISTORY: Fall, pain FINDINGS: There is some joint space narrowing bilaterally. This is greater on the left. There is acetabular spurring bilaterally also greater on the left. There is some mild cam deformity in both femurs. There is an ossific density seen on the lateral image near the upper hip joint. 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
[2020-08-12] MEDS: Tamsulosin 0.4 MG Cap.ER (PTOM) PO SCH ×2 (11:37→20:54)
--- NOTE | 2020-08-12 15:10 | PCM.PN ---
- General Info Date of Service: 08/12/20 Subjective Update: Mr. Norman has been stable since admission yesterday. He had developed profound weakness at home, to the point that he was unable to get up out of the chair. Despite extensive evaluation in the emergency department no specific etiology has been identified. There is no evidence of significant infection or metabolic abnormality. He is very hard of hearing and confused, unable to provide meaningful information concerning review of systems or symptoms. - Patient Data Vitals - Most Recent: Last Vital Signs Temp 97.0 F 08/12/20 14:49 Pulse 54 L 08/12/20 14:49 Resp 18 08/12/20 14:49 BP 153/68 H 08/12/20 14:49 Pulse Ox 98 08/12/20 14:49 Weight - Most Recent: 164 lb 14.492 oz I&O - Last 24 Hours: Intake & Output 08/12/20 08/12/20 08/12/20 06:59 14:59 22:59 Intake Total 636 500 Balance 636 500 Lab Results Last 24 Hours: Laboratory Results - last 24 hr 08/11/20 Range/Units 20:07 Urine Color Yellow (YELLOW) Urine Appearance Clear (CLEAR) Urine pH 5.5 (5.0-8.0) Ur Specific [place] 1.015 (1.008-1.030) Urine Protein Negative (NEGATIVE) mg/dL Urine Glucose (UA) Negative (NEGATIVE) mg/dL Urine Ketones Negative (NEGATIVE) mg/dL Urine Occult Blood Trace-intact H (NEGATIVE) Urine Nitrite Negative (NEGATIVE) Urine Bilirubin Negative (NEGATIVE) Urine Urobilinogen 0.2 (0.2-1.0) EU/dL Ur Leukocyte Esterase Negative (NEGATIVE) Urine RBC 0-5 (0-5) Urine WBC Not seen (0-5) Ur Epithelial Cells Not seen Urine Bacteria Not seen Med Orders - Current: Current Medications Acetaminophen (Tylenol Extra Strength) 1,000 mg PO TID [facility] Last Admin: 08/12/20 14:25 Dose: 1,000 mg Documented by: Ibuprofen (Motrin) 600 mg PO Q6H PRN PRN Reason: Pain/Fever Last Admin: 08/12/20 06:04 Dose: 600 mg Documented by: Lorazepam (Ativan) 0.5 mg IVPUSH Q4H PRN PRN Reason: Nausea/Vomiting Magnesium Hydroxide (Milk Of Magnesia) 30 ml PO Q12H PRN PRN Reason: Constipation Melatonin (Melatonin) 9 mg PO BEDTIME [facility] Last Admin: 08/11/20 20:10 Dose: 9 mg Documented by: Ondansetron HCl (Zofran) 4 mg IV Q6H PRN PRN Reason: Nausea/Vomiting Ondansetron HCl (Zofran Odt) 4 mg PO Q6H PRN PRN Reason: Nausea able to take PO Senna/Docusate Sodium (Senna Plus) 1 tab PO BID PRN PRN Reason: Constipation Sodium Chloride (Saline Flush) 10 ml FLUSH ASDIRECTED PRN PRN Reason: Keep Vein Open Tamsulosin HCl (Flomax) 0.4 mg PO BID [facility] Last Admin: 08/12/20 11:37 Dose: 0.4 mg Documented by: Discontinued Medications Sodium Chloride (Normal Saline) 1,000 mls @ 125 mls/hr IV ASDIRECTED [facility] Stop: 08/11/20 23:01 Last Admin: 08/11/20 15:39 Dose: 125 mls/hr Documented by: Tamsulosin HCl (Flomax) 0.4 mg PO BID [facility] Last Admin: 08/11/20 20:10 Dose: 0.4 mg Documented by: - Exam Quality Assessment: DVT Prophylaxis General: Alert, Cooperative, Mild Distress. No: Oriented Lungs: Clear to Auscultation, Normal Respiratory Effort Cardiovascular: Regular Rate, Regular Rhythm, No Murmurs GI/Abdominal Exam: Soft, Non-Tender, No Organomegaly, No Distention Extremities: Non-Tender, No Pedal Edema Sepsis Event Note - Evaluation Sepsis Screening Result: No Definite Risk - Focused Exam Vital Signs: Vital Signs Temp Pulse Resp BP Pulse Ox 08/12/20 14:49 97.0 F 54 L 18 153/68 H 98 08/12/20 10:49 204.8 F H 51 L 18 133/55 L 99 08/12/20 07:00 95.4 F L 54 L 18 131/54 L 96 08/12/20 04:00 96.0 F L 52 L 16 137/59 L 96 - Problem List Review Problem List Initiated/Reviewed/Updated: Yes - Plan Plan:: ASSESSMENT AND PLAN - Generalized weakness-no obvious source of infection. Covid is negative. -Physical therapy in the morning Probable Alzheimer's disease-no formal diagnosis but he has chronic memory problems. No behavior issues at this time. 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 Possible decubitus ulcer-family reports an area of redness on his sacral area. He is in a wheelchair at this time in 2-week to get a good look at this area. He will be examined once he is in bed. Maintenance issues - - DVT prophylaxis -mechanical - GI prophylaxis -not indicated - Nutrition -regular - Lora catheter -not indicated CODE STATUS -DNR/DNI Admission justification -patient will be referred to observation status for strengthening and additional work-up Disposition -I would anticipate discharge home with home care versus possibly a subacute rehab Primary care physician -Dr Micheal Villarreal
[2020-08-12] MEDS ORDERED: Haloperidol 1 MG Tab PO PRN (15:11)
[2020-08-12] MEDS: Melatonin 3 MG Tab PO SCH (20:55)
--- NOTE | 2020-08-12 21:11 | EDM.PDOC ---
ED HPI GENERAL MEDICAL PROBLEM - General Chief Complaint: General Stated Complaint: WEAKNESS LEGS ARE GIVING OUT Time Seen by Provider: 08/11/20 12:30 Source of Information: Reports: Family, Provider. Denies: Patient History Limitations: Reports: Altered Mental Status (dementia and hard of hearing ) - History of Present Illness INITIAL COMMENTS - FREE TEXT/NARRATIVE: 89-year-old male brought in by his daughter because of increasing weakness, especially in his lower extremities as well as left hip discomfort. He has fallen twice in the last 2 weeks. He does not seem short of breath, is still eating but his daughter is concerned that he is too weak to be cared for as well as the possibility that he may have injured himself more seriously when he fell. He does have an early decubitus ulcer on his buttocks that she is also concerned about. Onset: Gradual Duration: Week(s): (Patient has been becoming more weak over the past several weeks) Location: Reports: Back, Lower Extremity, Left Quality: Reports: Ache Worsens with: Reports: Other (His pain seems to be increased by movement of the left hip or attempts at weightbearing) - Related Data Allergies Allergy/AdvReac Type Severity Reaction Status Date / Time No Known Allergies Allergy Verified 08/11/20 11:50 Home Meds: Home Meds Tamsulosin [Flomax] 1 tab PO BID 08/11/20 [History] Past Medical History HEENT History: Reports: Cataract, Hard of Hearing, Other (See Below) Other HEENT History: [place]: better in R Genitourinary History: Reports: Prostate Disorder, Other (See Below) Other Genitourinary History: incontinent of urine and sometimes bowel Musculoskeletal History: Reports: Back Pain, Chronic Neurological History: Reports: None - Infectious Disease History Infectious Disease History: Reports: Measles, Mumps - Past Surgical History HEENT Surgical History: Reports: Cataract Surgery GI Surgical History: Reports: Hernia, Inguinal Male Surgical History: Reports: None Neurological Surgical History: Reports: None Social & Family History - Family History Family Medical History: Unobtainable - Tobacco Use Tobacco Use Status *Q: Never Tobacco User Second Hand Smoke Exposure: No - Caffeine Use Caffeine Use: Reports: Coffee - Recreational Drug Use Recreational Drug Use: No ED ROS GENERAL - Review of Systems Review Of Systems: See Below Constitutional: Denies: Fever, Chills HEENT: Reports: No Symptoms Respiratory: Denies: Shortness of Breath Cardiovascular: Denies: Chest Pain GI/Abdominal: Denies: Abdominal Pain, Nausea, Vomiting Skin: Reports: Other (Early decubitus ulcer and erythema of the buttock area which is sore) Neurological: Reports: Confusion, Weakness ED EXAM, GENERAL - Physical Exam Exam: See Below Exam Limited By: No Limitations General Appearance: Alert, No Apparent Distress Eye Exam: Bilateral Eye: PERRL Head: Atraumatic Neck: Supple, Non-Tender Respiratory/Chest: No Respiratory Distress, Lungs Clear Cardiovascular: Regular Rate, Rhythm GI/Abdominal: Soft, Non-Tender, No Organomegaly, No Distention Extremities: No Pedal Edema, Other (Patient reacted with tenderness when palpating around the left hip) Skin Exam: Warm, Dry Course - Vital Signs Last Recorded V/S: Last Vital Signs Temp 97.4 F 08/12/20 19:00 Pulse 58 L 08/12/20 19:00 Resp 16 08/12/20 19:00 BP 144/70 H 08/12/20 19:00 Pulse Ox 98 08/12/20 19:00 - Orders/Labs/Meds Orders: Medication Orders Acetaminophen (Tylenol Extra Strength) 1,000 mg PO TID [facility] Prieto Admin: 08/12/20 20:55 Dose: 1,000 mg Documented by: Admin: 08/12/20 14:25 Dose: 1,000 mg Documented by: Admin: 08/12/20 10:13 Dose: 1,000 mg Documented by: Admin: 08/11/20 20:10 Dose: 1,000 mg Documented by: Admin: 08/11/20 16:44 Dose: 1,000 mg Documented by: SANDRA Haloperidol (Haldol) 1 mg PO Q2H PRN PRN Reason: Agitation Ibuprofen (Motrin) 600 mg PO Q6H PRN PRN Reason: Pain/Fever Last Admin: 08/12/20 06:04 Dose: 600 mg Documented by: Admin: 08/12/20 00:01 Dose: 600 mg Documented by: HATTIE Lorazepam (Ativan) 0.5 mg IVPUSH Q4H PRN PRN Reason: Nausea/Vomiting Magnesium Hydroxide (Milk Of Magnesia) 30 ml PO Q12H PRN PRN Reason: Constipation Melatonin (Melatonin) 9 mg PO BEDTIME [facility] Last Admin: 08/12/20 20:55 Dose: 9 mg Documented by: Admin: 08/11/20 20:10 Dose: 9 mg Documented by: HATTIE Ondansetron HCl (Zofran) 4 mg IV Q6H PRN PRN Reason: Nausea/Vomiting Ondansetron HCl (Zofran Odt) 4 mg PO Q6H PRN PRN Reason: Nausea able to take PO Senna/Docusate Sodium (Senna Plus) 1 tab PO BID PRN PRN Reason: Constipation Sodium Chloride (Saline Flush) 10 ml FLUSH ASDIRECTED PRN PRN Reason: Keep Vein Open Tamsulosin HCl (Flomax) 0.4 mg PO BID [facility] Last Admin: 08/12/20 20:54 Dose: 0.4 mg Documented by: Admin: 08/12/20 11:37 Dose: 0.4 mg Documented by: RADHA Labs: Laboratory Tests 08/11/20 08/11/20 08/11/20 Range/Units 12:39 12:39 13:25 WBC 4.6 (4.5-11.0) K/uL RBC 4.40 (4.30-5.90) M/uL Hgb 13.9 (12.0-15.0) g/dL Hct 41.1 (40.0-54.0) % MCV 93 (80-98) fL MCH 32 H (27-31) pg MCHC 34 (32-36) % Plt Count 232 (150-400) K/uL Neut % (Auto) 51 (36-66) % Lymph % (Auto) 30 (24-44) % Upson % (Auto) 17 H (2-6) % Eos % (Auto) 2 (2-4) % Baso % (Auto) 1 (0-1) % Sodium 136 L (140-148) mmol/L Potassium 4.1 (3.6-5.2) mmol/L Chloride 102 (100-108) mmol/L Carbon Dioxide 23 (21-32) mmol/L Anion Gap 15.1 H (5.0-14.0) mmol/L BUN 26 H (7-18) mg/dL Creatinine 1.4 H (0.8-1.3) mg/dL Est Cr Clr Drug Dosing 37.87 mL/min Estimated GFR (MDRD) 48 L (>60) Glucose 109 H (74-106) mg/dL Calcium 8.3 L (8.5-10.1) mg/dL Total Bilirubin 0.5 (0.2-1.0) mg/dL AST 23 (15-37) U/L ALT 25 (12-78) U/L Alkaline Phosphatase 91 (46-116) U/L C-Reactive Protein < 0.05 (0.0-0.3) mg/dL Total Protein 6.6 (6.4-8.2) g/dL Albumin 3.1 L (3.4-5.0) g/dL Globulin 3.5 (2.3-3.5) g/dL Albumin/Globulin Ratio 0.9 L (1.2-2.2) Meds: Medications Generic Name Dose Route Start Last Admin Trade Name Freq PRN Reason Stop Dose Admin Acetaminophen 1,000 mg 08/11/20 16:00 08/12/20 20:55 Tylenol Extra Strength PO 1,000 mg TID BRIELLE Administration Haloperidol 1 mg 08/12/20 15:11 Haldol PO Q2H PRN Agitation Ibuprofen 600 mg 08/11/20 15:00 08/12/20 06:04 Motrin PO 600 mg Q6H PRN Administration Pain/Fever Lorazepam 0.5 mg 08/11/20 15:00 Ativan IVPUSH Q4H PRN Nausea/Vomiting Magnesium Hydroxide 30 ml 08/11/20 15:00 Milk Of Magnesia PO Q12H PRN Constipation Melatonin 9 mg 08/11/20 21:00 08/12/20 20:55 Melatonin PO 9 mg BEDTIME BRIELLE Administration Ondansetron HCl 4 mg 08/11/20 15:00 Zofran IV Q6H PRN Nausea/Vomiting Ondansetron HCl 4 mg 08/11/20 15:00 Zofran Odt PO Q6H PRN Nausea able to take PO Senna/Docusate Sodium 1 tab 08/11/20 15:00 Senna Plus PO BID PRN Constipation Sodium Chloride 10 ml 08/11/20 15:00 Saline Flush FLUSH ASDIRECTED PRN Keep Vein Open Tamsulosin HCl 0.4 mg 08/12/20 11:30 08/12/20 20:54 Flomax PO 0.4 mg BID BRIELLE Administration Discontinued Medications Generic Name Dose Route Start Last Admin Trade Name [place] PRN Reason Stop Dose Admin Sodium Chloride 1,000 mls @ 125 mls/hr 08/11/20 15:00 08/11/20 15:39 Normal Saline IV 08/11/20 23:01 125 mls/hr ASDIRECTED BRIELLE Administration Tamsulosin HCl 0.4 mg 08/11/20 21:00 08/11/20 20:10 Flomax PO 0.4 mg BID BRIELLE Administration - Re-Assessments/Exams Free Text/Narrative Re-Assessment/Exam: 08/12/20 21:09 A pelvic and left hip x-ray was obtained which showed no fracture. Dr. Benitez was consulted to see the patient to consider for admission for profound weakness, inability to care at home and discharge disposition help with social service to a more advanced level of care. Departure - Departure Time of Disposition: 15:06 Disposition: Admitted As Inpatient 67 Clinical Impression: Generalized weakness Contusion of left hip Qualifiers: Encounter type: initial encounter Qualified Code(s): S70.02XA - Contusion of left hip, initial encounter - Discharge Information Sepsis Event Note (ED) - Evaluation Sepsis Screening Result: No Definite Risk
[2020-08-13] MEDS: Tamsulosin 0.4 MG Cap.ER (PTOM) PO SCH ×2 (08:11→20:52)
[2020-08-13] MEDS: Acetaminophen 500 MG Tab PO SCH ×3 (08:12→20:53)
--- NOTE | 2020-08-13 14:35 | PCM.PN ---
- General Info Date of Service: 08/13/20 Subjective Update: Mr. Norman has remained stable over the past 24 hours. Confused but not significantly agitated. Awaiting safe discharge plan and care home placement tomorrow. Because of his severe hearing impairment and confusion he is unable to provide a meaningful history concerning recent symptoms or review of systems. - Patient Data Vitals - Most Recent: Last Vital Signs Temp 95.5 F L 08/13/20 11:00 Pulse 55 L 08/13/20 11:00 Resp 16 08/13/20 11:00 BP 126/52 L 08/13/20 11:00 Pulse Ox 98 08/13/20 11:00 Weight - Most Recent: 164 lb 14.492 oz I&O - Last 24 Hours: Intake & Output 08/12/20 08/13/20 08/13/20 22:59 06:59 14:59 Intake Total 100 600 Balance 100 600 Med Orders - Current: Current Medications Acetaminophen (Tylenol Extra Strength) 1,000 mg PO TID [facility] Last Admin: 08/13/20 13:12 Dose: 1,000 mg Documented by: Ibuprofen (Motrin) 600 mg PO Q6H PRN PRN Reason: Pain/Fever Last Admin: 08/12/20 06:04 Dose: 600 mg Documented by: Lorazepam (Ativan) 0.5 mg IVPUSH Q4H PRN PRN Reason: Nausea/Vomiting Magnesium Hydroxide (Milk Of Magnesia) 30 ml PO Q12H PRN PRN Reason: Constipation Melatonin (Melatonin) 9 mg PO BEDTIME [facility] Last Admin: 08/12/20 20:55 Dose: 9 mg Documented by: Ondansetron HCl (Zofran) 4 mg IV Q6H PRN PRN Reason: Nausea/Vomiting Ondansetron HCl (Zofran Odt) 4 mg PO Q6H PRN PRN Reason: Nausea able to take PO Senna/Docusate Sodium (Senna Plus) 1 tab PO BID PRN PRN Reason: Constipation Sodium Chloride (Saline Flush) 10 ml FLUSH ASDIRECTED PRN PRN Reason: Keep Vein Open Tamsulosin HCl (Flomax) 0.4 mg PO BID [facility] Last Admin: 08/13/20 08:11 Dose: 0.4 mg Documented by: Discontinued Medications Haloperidol (Haldol) 1 mg PO Q2H PRN PRN Reason: Agitation Sodium Chloride (Normal Saline) 1,000 mls @ 125 mls/hr IV ASDIRECTED [facility] Stop: 08/11/20 23:01 Last Admin: 08/11/20 15:39 Dose: 125 mls/hr Documented by: Tamsulosin HCl (Flomax) 0.4 mg PO BID [facility] Last Admin: 08/11/20 20:10 Dose: 0.4 mg Documented by: - Exam Quality Assessment: DVT Prophylaxis General: Alert, Cooperative, No Acute Distress. No: Oriented Lungs: Clear to Auscultation, Normal Respiratory Effort Cardiovascular: Regular Rate, Regular Rhythm, No Murmurs GI/Abdominal Exam: Soft, Non-Tender, No Organomegaly, No Distention Extremities: Non-Tender, No Pedal Edema Sepsis Event Note - Evaluation Sepsis Screening Result: No Definite Risk - Focused Exam Vital Signs: Vital Signs Temp Pulse Resp BP Pulse Ox 08/13/20 11:00 95.5 F L 55 L 16 126/52 L 98 08/13/20 03:00 16 - Problem List Review Problem List Initiated/Reviewed/Updated: Yes - Plan Plan:: ASSESSMENT AND PLAN Generalized weakness-no obvious source of infection. Covid is negative. -Physical therapy Probable Alzheimer's disease-no formal diagnosis but he has chronic memory problems. No behavior issues at this time. 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 Possible decubitus ulcer-no ulcer present Maintenance issues - - DVT prophylaxis -mechanical - GI prophylaxis -not indicated - Nutrition -regular - Lora catheter -not indicated CODE STATUS -DNR/DNI Admission justification -patient will be referred to observation status for strengthening and additional work-up Disposition -I would anticipate discharge home with home care versus possibly a subacute rehab Primary care physician -Dr Micheal Villarreal
[2020-08-13] MEDS: Melatonin 3 MG Tab PO SCH (20:53)
[2020-08-14] MEDS: Acetaminophen 500 MG Tab PO SCH (10:22)
[2020-08-14] MEDS: Tamsulosin 0.4 MG Cap.ER (PTOM) PO SCH (10:22)
--- NOTE | 2020-08-14 12:23 | PCM.DCSUM1 ---
Discharge Summary - Hospital Course Brief History: Mr. Norman is an 89-year-old gentleman who was admitted to observation status through the emergency department because of progressive weakness with recurrent falls at home. - Discharge Data Discharge Date: 08/14/20 Discharge Disposition: DC/Tfer to SNF 03 Condition: Fair - Referral to Home Health Primary Care Physician: Dexter Villarreal MD - Discharge Diagnosis/Problem(s) (1) Weakness SNOMED Code(s): 08566152 ICD Code: R53.1 - WEAKNESS Status: Acute Current Visit: Yes (2) Fall in elderly patient SNOMED Code(s): 929090719 ICD Code: R29.6 - REPEATED FALLS Status: Acute Current Visit: Yes (3) BPH loc w urin obs/LUTS SNOMED Code(s): 512360003 ICD Code: N40.1 - BENIGN PROSTATIC HYPERPLASIA WITH LOWER URINARY TRACT SYMP Status: Chronic Current Visit: Yes (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 SNOMED Code(s): 53254793 ICD Code: G30.9 - ALZHEIMER'S DISEASE, UNSPECIFIED; F02.80 - DEMENTIA IN OTH DISEASES CLASSD ELSWHR W/O BEHAVRL DISTURB Status: Suspected Current Visit: Yes Qualifiers: Alzheimer's disease onset: late-onset Qualified Code(s): G30.1 - Alzheimer's disease with late onset; F02.80 - Dementia in other diseases classified elsewhere without behavioral disturbance - Patient Summary/Data Consults: Consultations 08/12/20 07:00 PT Evaluation and Treatment [CONS] Routine Please Evaluate and Treat. PT Reason for Consult: Strengthening This query below is only for informational purposes and is not editable. Hospital Course: Mr. Norman presented to the emergency room with weakness. He has some dementia and is very hard of hearing so history was extremely difficult to gather. History is gathered from his daughter and emergency room personnel. His daughter reports that over the last week he has had a slow decline with increasing weakness and a mild increase in his confusion from baseline. He has been having more and more difficulty getting around the house where he usually is at least somewhat ambulatory. He did have a fall a couple of days ago landing on his left side. He does appear to have some left hip pain but he is not able to tell me what this feels like. He was so weak today that he could not get up out of the chair. Once his family helped him up he was able to walk to the car but then could not get out of the car. Work-up in the emergency room has been fairly unremarkable. He will be admitted for observation and physical therapy. On admission he was initially given some IV fluids for hydration, these were discontinued the next day. He was seen daily by physical therapy and occupational therapy while hospitalized. He was kept in the hospital until a safe discharge plan could be realized. [facility] and [facility]ational [facility]. Activity will be as tolerated and he will resume his usual diet. Follow-up with primary care will be as needed at the [facility]. - Patient Instructions Diet: Usual Diet as Tolerated Activity: As Tolerated - Discharge Plan *PRESCRIPTION DRUG MONITORING PROGRAM REVIEWED*: Not Applicable *COPY OF PRESCRIPTION DRUG MONITORING REPORT IN PATIENT SEPIDEH: Not Applicable Home Medications: Home Meds Tamsulosin [Flomax] 1 tab PO BID 08/11/20 [History] Referrals: Dexter Villarreal MD [Primary Care Provider] - - Discharge Summary/Plan Comment DC Time >30 min.: No - Patient Data Vitals - Most Recent: Last Vital Signs Temp 95.4 F L 08/14/20 11:00 Pulse 68 08/14/20 11:00 Resp 18 08/14/20 11:00 BP 98/43 L 08/14/20 11:00 Pulse Ox 96 08/14/20 11:00 Weight - Most Recent: 164 lb 14.492 oz I&O - Last 24 hours: Intake & Output 08/13/20 08/14/20 08/14/20 22:59 06:59 14:59 Intake Total 1080 500 Balance 1080 500 Med Orders - Current: Current Medications Acetaminophen (Tylenol Extra Strength) 1,000 mg PO TID BRIELLE Last Admin: 08/14/20 10:22 Dose: 1,000 mg Documented by: Ibuprofen (Motrin) 600 mg PO Q6H PRN PRN Reason: Pain/Fever Last Admin: 08/12/20 06:04 Dose: 600 mg Documented by: Lorazepam (Ativan) 0.5 mg IVPUSH Q4H PRN PRN Reason: Nausea/Vomiting Last Admin: 08/13/20 19:28 Dose: 0.5 mg Documented by: Magnesium Hydroxide (Milk Of Magnesia) 30 ml PO Q12H PRN PRN Reason: Constipation Melatonin (Melatonin) 9 mg PO BEDTIME [facility] Last Admin: 08/13/20 20:53 Dose: 9 mg Documented by: Ondansetron HCl (Zofran) 4 mg IV Q6H PRN PRN Reason: Nausea/Vomiting Ondansetron HCl (Zofran Odt) 4 mg PO Q6H PRN PRN Reason: Nausea able to take PO Senna/Docusate Sodium (Senna Plus) 1 tab PO BID PRN PRN Reason: Constipation Sodium Chloride (Saline Flush) 10 ml FLUSH ASDIRECTED PRN PRN Reason: Keep Vein Open Tamsulosin HCl (Flomax) 0.4 mg PO BID [facility] Last Admin: 08/14/20 10:22 Dose: 0.4 mg Documented by: Discontinued Medications Haloperidol (Haldol) 1 mg PO Q2H PRN PRN Reason: Agitation Sodium Chloride (Normal Saline) 1,000 mls @ 125 mls/hr IV ASDIRECTED [facility] Stop: 08/11/20 23:01 Last Admin: 08/11/20 15:39 Dose: 125 mls/hr Documented by: Tamsulosin HCl (Flomax) 0.4 mg PO BID [facility] Last Admin: 08/11/20 20:10 Dose: 0.4 mg Documented by: - Exam Quality Assessment: Reports: DVT Prophylaxis General: Reports: Alert, Cooperative, No Acute Distress. Denies: Oriented Lungs: Reports: Clear to Auscultation, Normal Respiratory Effort Cardiovascular: Reports: Regular Rate, Regular Rhythm, No Murmurs GI/Abdominal Exam: Soft, Non-Tender, No Organomegaly, No Distention Extremities: Non-Tender, No Pedal Edema
[2020-08-14 14:31] VITALS: BP 141/70; PULSE 95
== END 2020-08-14 14:00 ==
LOC: JP.ED 11:45 → JP.MS 13:46
PROVIDERS: ADMIT Internal Medicine; ATTEND Hospitalist
DX: R53.1 Weakness (principal); G30.9 Alzheimer's disease, unspecified; F02.80 Dementia in other diseases classified elsewhere, unspecified severity, without behavioral disturbance, psychotic disturbance, mood disturbance, and anxiety; G89.29 Other chronic pain; R29.6 Repeated falls; N40.1 Benign prostatic hyperplasia with lower urinary tract symptoms; N13.8 Other obstructive and reflux uropathy; S70.02XA Contusion of left hip, initial encounter; Z20.828 Contact with and (suspected) exposure to other viral communicable diseases; Z79.899 Other long term (current) drug therapy; Z98.890 Other specified postprocedural states
CPT/HCPCS: 36415; 51703; 51798; 73502; 80053; 81001; 85025; 86140; 97110; 97162; 97530; 99285; A9270; J2060; J7030; U0002; 96374; 99284; G0378

== ENCOUNTER 2020-09-18 11:49 | Emergency (ER) | payer MEDICARE, BC ==
--- NOTE | 2020-09-18 12:24 | EDM.PDOC ---
ED HPI GENERAL MEDICAL PROBLEM - General Chief Complaint: Neuro Symptoms/Deficits Stated Complaint: STROKE??? Time Seen by Provider: 09/18/20 12:00 Source of Information: Reports: EMS, Assisted Records History Limitations: Reports: Physical Impairment (Patient has significant dementia and very little ability to communicate) - History of Present Illness INITIAL COMMENTS - FREE TEXT/NARRATIVE: 89-year-old male who [facility] for [facility] and [facility] over the past several weeks scheduled to go home soon but today seemed more weak than usual with some increased confusion. They were concerned that he may have had a stroke so sent him in for an evaluation. Symptoms were noticed this morning, he usually pushes himself around with his legs in a wheelchair but today was not doing that and he just seemed off. No fever chills, no hypoxia no recent falls or trauma, no nausea or vomiting. He arrived by EMS without anyone to provide any more history and the patient is unable to provide any himself. I do not know what his baseline is. He focuses well, but does not communicate. Onset: Unknown/Unsure Associated Symptoms: Reports: Confusion, Weakness. Denies: Fever/Chills, Shortness of Breath - Related Data Allergies Allergy/AdvReac Type Severity Reaction Status Date / Time No Known Allergies Allergy Verified 09/18/20 11:56 Home Meds: Home Meds Tamsulosin [Flomax] 1 tab PO BID 08/11/20 [History] Acetaminophen [Tylenol] 650 mg PO BID 09/18/20 [History] Gabapentin [Neurontin] 100 mg PO DAILY 09/18/20 [History] Gabapentin [Neurontin] 200 mg PO BEDTIME 09/18/20 [History] Sennosides [Senna] 2 tab PO BID 09/18/20 [History] Past Medical History HEENT History: Reports: Cataract, Hard of Hearing, Other (See Below) Other HEENT History: [place]: better in R Cardiovascular History: Reports: Hypertension Gastrointestinal History: Reports: Chronic Constipation Genitourinary History: Reports: Prostate Disorder, Other (See Below) Other Genitourinary History: incontinent of urine and sometimes bowel Musculoskeletal History: Reports: Back Pain, Chronic Neurological History: Reports: Alzheimers Disease Psychiatric History: Reports: Alzheimers Disease - Infectious Disease History Infectious Disease History: Reports: Measles, Mumps - Past Surgical History HEENT Surgical History: Reports: Cataract Surgery GI Surgical History: Reports: Hernia, Inguinal Male Surgical History: Reports: None Social & Family History - Family History Family Medical History: Unobtainable - Tobacco Use Tobacco Use Status *Q: Unknown Ever Used Tobacco - Caffeine Use Caffeine Use: Reports: Coffee ED ROS GENERAL - Review of Systems Review Of Systems: See Below Constitutional: Denies: Fever, Chills, Malaise Respiratory: Denies: Shortness of Breath GI/Abdominal: Denies: Nausea, Vomiting Neurological: Reports: Other (Increased weakness and confusion per [facility] staff) ED EXAM, NEURO - Physical Exam Exam: See Below Exam Limited By: Physical Impairment (Profound dementia, has inability to cooperate with exam) General Appearance: Alert, No Apparent Distress Eye Exam: Bilateral Eye: EOMI (Patient tracks well in both directions) Head Exam: Atraumatic Respiratory/Chest: No Respiratory Distress, Lungs Clear Cardiovascular: Regular Rate, Rhythm GI/Abdominal: Normal Bowel Sounds, Other (Seems uncomfortable to palpation across his abdomen but no focal tenderness) Neurological: Alert (Patient is alert but profoundly confused, aphasic and unable to communicate), Other (Patient spontaneously grabs firmly with a chair where fingers are placed in his palm, he also withdraws his toes symmetrically with stimulation of the sole of the foot. 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 [facility] will be [facility] the [facility] through the weekend and we can consider new imaging early next week on Wednesday whether repeat CT scan or MRI to see if there is any significant changes. If it is felt he reverts back to his baseline, discharged home can still be undertaken on Wednesday. Departure - Departure Time of Disposition: 14:13 Disposition: DC/Tfer to [facility] 64 Clinical Impression: Weakness, Confusion - Discharge Information Instructions: Weakness, [id number] Referrals: PCP,None [Primary Care Provider] - Forms: ED Department Discharge Care Plan Goals: Continue current treatment and activity, consider rechecking early next week if not improving satisfactorily. If he returns back to his baseline he can still be discharged home as planned. Sepsis Event Note (ED) - Evaluation Sepsis Screening Result: No Definite Risk - Focused Exam Vital Signs: Vital Signs Temp Pulse Resp BP Pulse Ox 09/18/20 13:40 61 127/82 09/18/20 12:55 59 L 131/71 09/18/20 11:52 96.9 F 51 L 18 156/72 H 97 09/18/20 11:50 96.9 F 51 L 18 156/72 H 97
--- NOTE | 2020-09-18 12:55 | CT ---
Head wo Cont CLINICAL HISTORY: Confusion, weakness COMPARISON: None TECHNIQUE: Transverse scans were obtained from the base of the skull through the vertex without IV contrast on a multislice, multidetector CT scanner. Auto dosage reduction and iterative reconstruction techniques employed. FINDINGS: There is a 9 x 5 x 11 mm focus of encephalomalacia in the right basal ganglia. There is no mass effect, hemorrhage, or extraaxial collection. There are scattered low-attenuation areas in the periventricular and subcortical white matter. The basal cisterns and sulci over the convexities are prominent. The ventricles are prominent. There is moderate atherosclerotic basilar calcification in the carotid arteries as well as the vertebrobasilar system. 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
[2020-09-18 14:12] VITALS: BP 127/82; PULSE 61
== END 2020-09-18 14:13 ==
LOC: JP.ED 11:49
DX: R41.0 Disorientation, unspecified (principal); R53.1 Weakness; I10 Essential (primary) hypertension; G30.9 Alzheimer's disease, unspecified; F02.80 Dementia in other diseases classified elsewhere, unspecified severity, without behavioral disturbance, psychotic disturbance, mood disturbance, and anxiety; Z79.899 Other long term (current) drug therapy
CPT/HCPCS: 70450; 70450-26; 99285-25